=== PATIENT | female | born 1955 | race Caucasian/White ===

== ENCOUNTER → 2021-06-14 | Day surgery (SDC) | payer BC ==
--- NOTE | 2021-06-14 11:41 | RAD REPORT ---
EXAM DESCRIPTION: Ultrasound-guided vacuum assisted right breast core biopsy CLINICAL HISTORY: Breast mass N63.41 COMPARISON: Follow Up Breast Axilla Comp dated 06/07/2021; Follow Up Breast Axilla Comp dated 06/07/20 21 FINDINGS: Informed consent was obtained and time-out was performed. The patient's right breast was prepped and draped in the usual sterile fashion. 1% lidocaine was used for local anesthetic purposes. Utilizing aseptic technique and ultrasound guidance, a 12 gauge vacuum assisted core biopsy device wa s used to obtain a seen core specimens through the lesion of interest located periareolar region alyse suring 9 mm. The lesion was seen to decrease in size and was difficult to visualize for a second pass . This favors that it represents a cyst with debris or complex cyst. As a precaution, six-month follo w-up right breast ultrasound be recommended. All collected material was sent for cytology. Patient tolerated procedure well. IMPRESSION: Successful ultrasound guided vacuum assisted right breast lesion biopsy. After the first biopsy pass, the lesion was quite difficult to visualize sonographically and appeared smaller and di fferent in appearance. This favors that it represents a cyst or cyst-like lesion. It is recommended t he patient have a six-month follow-up right whole breast ultrasound for surveillance purposes.
== END ==
LOC: DS 10:11
PROVIDERS: ATTEND Nurse Practitioner Family
DX: N63.41 Unspecified lump in right breast, subareolar (principal)
CPT/HCPCS: 19083; 88305